=== PATIENT | male | born 1995 | race Caucasian/White ===

== ENCOUNTER 2016-04-01 16:03 | Emergency (ER) | payer SELFPAY ==
[~2016-04-01] VITALS: Ht 165.1 cm; Wt 110.0 kg
[2016-04-01 16:05] VITALS: BP 167/102; PULSE 90; RESP 20; TEMP 98.4; O2SAT 96
--- NOTE | 2016-04-01 16:22 | PD ---
HPI Chief Complaint: Injury Time Seen by Provider: 16:20 Travel History International Travel<30 days: No Contact w/Intl Traveler<30days: No Traveled to known affect area: No History of Present Illness HPI 20-year-old male presents to the emergency department for evaluation of left foot pain that is not going for 3 days. He denies a traumatic injury. However , he states he reports whenever he puts pressure on his left foot, he has pain that radiates up the left leg. He denies any fevers or chills. He denies any chronic medical problems and states he takes no prescribed medications. Patient denies any other complaints at this time. [facility] Social History Alcohol Use: Yes Tobacco Use: No Substance Use: No Allergies-Medications (Allergen,Severity, Reaction): Coded Allergies: No Known Allergies (Verified , 04/01/16) Reported Meds & Prescriptions Reported Meds & Active Scripts Active Ibuprofen 600 Mg Tab 600 Mg PO TID PRN Review of Systems Except as stated in HPI: all other systems reviewed are Neg Physical Exam Narrative GENERAL: Well-developed well-nourished male patient, afebrile. SKIN: Warm and dry. HEAD: Normocephalic. Atraumatic. EYES: No scleral icterus. No injection or drainage. NECK: Supple, trachea midline. No JVD or lymphadenopathy. CARDIOVASCULAR: Regular rate and rhythm without murmurs, gallops, or rubs. Left posterior tibial pulse 2+. RESPIRATORY: Breath sounds equal bilaterally. No accessory muscle use. Lungs sounds clear to auscultation. GASTROINTESTINAL: Abdomen soft, non-tender, nondistended. MUSCULOSKELETAL: No cyanosis, or edema. Patient has tenderness over left lateral foot. No obvious deformity. No erythema or warmth. He has full sensation distal left lower extremity. BACK: Nontender without obvious deformity. No CVA tenderness. Data Data Last Documented VS Vital Signs Date Time Temp Pulse Resp B/P Pulse Ox O2 Delivery O2 Flow Rate FiO2 04/01/16 16:05 98.4 90 20 167/102 96 Room Air Orders Foot, Complete (Mdl8dpi) (04/01/16 ) Splint Or Brace Apply/Monitor (04/01/16 16:42) MDM Medical Decision Making Medical Screen Exam Complete: Yes Emergency Medical Condition: Yes Medical Record Reviewed: Yes Interpretation(s) x-ray of the left foot - CONCLUSION: Unremarkable examination of the left foot. Differential Diagnosis Contusion versus sprain versus fracture Narrative Course 20-year-old male presents to the emergency department for evaluation of left foot pain that started after walking on Tuesday. He denies a traumatic injury. X-ray of the right foot is ordered and pending. X-ray of the right foot is unremarkable. Patient is provided Kyle bandage for support and comfort. He'll be discharged with a prescription for ibuprofen. He is encouraged to follow-up with his primary care physician. Diagnosis Primary Impression: Sprain of left foot Qualified Code: S93.602A - Sprain of left foot, initial encounter Referrals: Primary Care Physician call for appointment Patient Instructions: Foot Sprain (ED), General Instructions Departure Forms: Tests/Procedures, Work Release Enter return to work date: Apr 05, 2016 Additional Instructions: Wear Kyle bandage as needed for support. Ice for 20 minutes 4-5 times daily. Elevate. Take ibuprofen as instructed as needed with food for pain. Follow-up with a primary care physician. Return to the emergency department for any acute worsening of symptoms. Med/Other Pt SpecificInfo: Prescription(s) given Scripts Ibuprofen 600 Mg [id number] Mg PO TID PRN (PAIN SCALE 1 TO 10) #21 TAB Ref 0 Prov:Beatriz Helms 04/01/16 Disposition: 01 DISCHARGE HOME Condition: Stable Beatriz Helms Apr 01, 2016 16:22
--- NOTE | 2016-04-01 16:40 | RADRPT ---
EXAM DATE/TIME: 04/01/2016 16:35 [place] COMPARISON: No previous studies available for comparison. INDICATIONS : Patient stated pain started when walking home Tuesday. MEDICAL HISTORY : None. SURGICAL HISTORY : None. ENCOUNTER: Initial ACUITY: 4 - 6 days PAIN SCORE: 0/10 LOCATION: Left Foot. FINDINGS: Three view examination of the left foot demonstrates no soft tissue swelling, dislocation, or fractur e. The tarsal bones appear intact. The interphalangeal and metatarsophalangeal joints are intact. The calcaneus is intact. Bony mineralization is normal. CONCLUSION: Unremarkable examination of the left foot. Charla Harley MD on April 01, 2016 at 16:38 Board Certified Radiologist. This report was verified electronically.
[2016-04-01] MEDS ORDERED: IBUP-232 PO (16:44)
== END 2016-04-01 16:59 | disposition home or self-care (01) ==
LOC: NEPB 16:03
DX: S93.602A Unspecified sprain of left foot, initial encounter (principal); X58.XXXA Exposure to other specified factors, initial encounter
CPT/HCPCS: 73630; 99283

== ENCOUNTER 2016-05-03 13:59 | Emergency (ER) | payer SELFPAY ==
[~2016-05-03] VITALS: Ht 167.6 cm; Wt 115.0 kg
[~2016-05-03 13:59] MED LIST: IBUP-232 PO
[2016-05-03 14:01] VITALS: BP 171/79; PULSE 92; RESP 14; TEMP 98.4; O2SAT 97
[2016-05-03] MEDS ORDERED: DICL75TA PO (14:33)
[2016-05-03] MEDS ORDERED: AMOX875T PO (14:33)
[2016-05-03] MEDS ORDERED: CARB6.5S5 LEFT EAR (14:33)
--- NOTE | 2016-05-03 14:38 | PD ---
HPI Chief Complaint: ENT Complaint Time Seen by Provider: 14:33 Travel History International Travel<30 days: No Contact w/Intl Traveler<30days: No Traveled to known affect area: No History of Present Illness HPI 20-year-old male that presents to the ED for evaluation of bilateral ear pain. Per patient she's had ear pain bilaterally for the past 3 days. Per patient the symptoms started on Tuesday. Per patient's currently getting worse especially on the right ear. Per patient he is loosing his hearing on the left ear but he still has some pressure. He does have some runny nose and congestion. No cough. He denies taking any medications. No allergies to medication. Has not taken anything for this. Denies any chest pain or shortness of breath. No back pain or neck pain. No abdominal pain. No nausea or vomiting. He has not seen anybody for this. Symptoms do not radiate. Per patient the pain feels like a pressure inside the right ear. No history of surgeries to the ears or any other medical problems reported. Pain is 6/10. PFSH Past Medical History Medical History: Denies Significant Hx Past Surgical History Surgical History: No Previous Surgery Social History Alcohol Use: Yes Tobacco Use: No Substance Use: No Allergies-Medications (Allergen,Severity, Reaction): Coded Allergies: No Known Allergies (Verified , 05/03/16) Reported Meds & Prescriptions Reported Meds & Active Scripts Active Debrox Otic Drops (Carbamide Peroxide Otic Drops) 6.5% Soln 5-10 Drop LEFT EAR BID PRN up to 4 days. Amoxicillin 875 Mg Tab 875 Mg PO BID [address] (Diclofenac Sodium) 75 Mg Tabdr 75 Mg PO BID PRN Ibuprofen 600 Mg Tab 600 Mg PO TID PRN Review of Systems General / Constitutional: No: Fever, Chills, Weight Gain, Weight Loss, Other Eyes: No: Diploplia, Blurred Vision, Photophobia, Drainage, Redness, Foreign Body Sensation, Pain, Tearing, Blind Spots, Visual changes, Blindness, Other HENT: Positive: Rhinitis, Congestion, Earache, No: Headaches, Vertigo, Lightheadedness, Sore Throat, Rhinorrhea, Nosebleed, Neck Stiffness, Neck Pain, Masses, Gingival Bleeding, Dental Difficulties, Ear Discharge, Other Cardiovascular: No: Chest Pain or Discomfort, Palpitations, Irregular Rhythm, Tachycardia, Diaphoresis, Syncope, Dyspnea on exertion, Varicosities, Edema, Cyanosis, Varicosities, Phlebitis, Claudication, Other Respiratory: No: Cough, Shortness of Breath, Wheezing, Sneezing, Orthopnea, Hemoptysis, Stridor, Night Sweats, Pleuritic Pain, Other Gastrointestinal: No: Nausea, Vomiting, Diarrhea, Abdominal Pain, Hematemesis, Hematochezia, Constipation, Changes in Bowel Habits, Indigestion, Dysphagia, Loss of Appetite, Other Genitourinary: No: Urgency, Frequency, Dysuria, Nocturia, Hematuria, Decreased Urinary Output, Oliguria, Hesitancy, Dribbling, Incontinence, Pelvic Pain, Flank Pain, Dyspareunia, Discharge, Dysmenorrhea, Menorrhagia, Metorrhagia, Vaginal Bleeding, Other Musculoskeletal: No: Myalgias, Arthralgias, Limited ROM, Weakness, Cramping, Edema, Pain, Atrophy, Other Skin: No Rash, No Itching, No Dryness, No Lumps, No Hives, No Change in Pigmentation, No Change in nails, No Alopecia, No Lesions, No Breast Lumps, No Breast Tenderness, No Breast Swelling, No Other Neurologic: No: Weakness, Dizziness, Syncope, Focal Abnormalities, Coordination Problem, Tremor, Ataxia, Headache, Change in Mentation, Slurred Speech, Paresthesia, Incontinence, Seizures, Sensory Disturbance, Other Psychiatric: No: Anxiety, Depression, Suicidal Ideations, Disorder of Thought, Mood Disorder, Substance Abuse, Homicidal Ideation, Other Endocrine: No: Heat Intolerance, Cold Intolerance, Polyuria, Polydipsia, Other Hematologic/Lymphatic: No: Easy Bruising, Lymph Node Enlargement, Other Physical Exam Narrative GENERAL: Well-nourished, well-developed patient in no apparent distress. SKIN: Warm and dry. HEAD: Atraumatic. Normocephalic. EYES: Pupils equal and round reactive to light and accommodation. No scleral icterus. No injection or drainage. ENT: No nasal bleeding or discharge. Mucous membranes pink and moist. Right TM is red and bulging. Left TM slightly erythematous but not as bad as the left. It is somewhat hard to see the TM secondary to severe cerumen impaction on the left ear compared to the right.. No mastoid tenderness. Ear canals are intact bilaterally. No lymphadenopathy. Nostril mucosa is red and moist with clear mucus noted. No sinus tenderness to palpation noted. Tonsils are not enlarged or swollen. No ulvua Deviation. Tongue is midline. NECK: Trachea midline. No JVD. No meningeal signs noted CARDIOVASCULAR: Regular rate and rhythm. RESPIRATORY: No accessory muscle use. Clear to auscultation. Breath sounds equal bilaterally. GASTROINTESTINAL: Abdomen soft, non-tender, nondistended. Hepatic and splenic margins not palpable. MUSCULOSKELETAL: Extremities without clubbing, cyanosis, or edema. No obvious deformities. NEUROLOGICAL: Awake and alert. No obvious cranial nerve deficits. Motor grossly within normal limits. Five out of 5 muscle strength in the arms and legs. Normal speech. PSYCHIATRIC: Appropriate mood and affect; insight and judgment normal. Data Data Last Documented VS Vital Signs Date Time Temp Pulse Resp B/P Pulse Ox O2 Delivery O2 Flow Rate FiO2 05/03/16 14:01 98.4 92 14 171/79 97 Room Air MDM Medical Decision Making Medical Screen Exam Complete: Yes Emergency Medical Condition: Yes Medical Record Reviewed: Yes Differential Diagnosis Otitis media versus otitis externa versus mastoiditis versus foreign body versus cerumen impaction versus perforated eardrum versus eustachian tube dysfunction versus bug in the ear versus serous otitis media Narrative Course 20-year-old male that presents to the ED for evaluation of ear pain. Patient was properly examined and was found to have signs and symptoms consistent with what appears to be cerumen impaction of the left ear as well as bilateral otitis media. Patient will be treated for this with prescription for amoxicillin and diclofenac sodium as well as Debrox for the cerumen impaction. Patient was told that the ear wax should come off in the next couple of days. Patient was told to follow with PCP. See ED if any worsening symptoms. He agrees with plan. Diagnosis Primary Impression: Otitis media Qualified Code: H66.003 - Acute suppurative otitis media of both ears without spontaneous rupture of tympanic membranes, recurrence not specified Additional Impression: Cerumen impaction Qualified Code: H61.22 - Impacted cerumen of left ear Patient Instructions: General Instructions Additional Instructions: Motrin and Tylenol for pain and fever. You can use [id number] antihistamine as well as well as Mucinex as needed for runny nose and congestion. Cough drops for cough as needed. Drink plenty of fluids. Follow-up with PCP. See ED for worsening symptoms. Med/Other Pt SpecificInfo: Prescription(s) given Scripts Carbamide Peroxide Otic Drops (Debrox Otic Drops)6.5% Soln5-10 Drop LEFT EAR BID PRN (Ear Wax Removal) #1 BOTTLE Ref 0 up to 4 days. Prov:Korin Merrill MD 05/03/16 Amoxicillin 875 Mg [id number] Mg PO BID 10 Days Prov:Korin Merrill MD 05/03/[address] 75 Mg Tabdr75 Mg PO BID PRN (PAIN SCALE 1 TO 10) #20 TAB Prov:Korin Merrill MD 05/03/16 Disposition: 01 DISCHARGE HOME Condition: Stable Lawrence Vincent May 03, 2016 14:38
== END 2016-05-03 14:46 | disposition home or self-care (01) ==
LOC: NEPB 13:59
DX: H66.93 Otitis media, unspecified, bilateral (principal); H61.22 Impacted cerumen, left ear
CPT/HCPCS: 99282